=== PATIENT | male | born 1975 | race Two or more races ===

== ENCOUNTER 2025-02-06 17:01 | Emergency (ER) | payer OTHER, SELFPAY ==
[2025-02-06 17:02] VITALS: BMI 40.0
[2025-02-06 17:27] VITALS: BP 148/89; PULSE 91; RESP 17; TEMP 37; O2SAT 95; BMI 40.3
--- NOTE | 2025-02-06 17:32 | XR_ITS ---
Examination: Hand, left 3 views Technique: Hand AP, oblique, lateral 3 views Date and time of exam: February 06, 2025 1811 hours INDICATIONS: Onset pain today in the hand FINDINGS: No acute fracture No dislocation Mild osteoarthritis distal interphalangeal joints No aggressive arthritis No opaque foreign body IMPRESSION: No fracture No opaque foreign body
--- NOTE | 2025-02-06 18:34 | PD.EDHAND ---
Upper Extremity Injury RME/HPI General Chief Complaint: Hand/Wrist Problems Stated Complaint: INJURED MY HAND AT WORK LIFTING Time Seen by Provider: 02/06/25 17:11 Arrival date/time: 02/06/25 17:01 49M with no significant PMH presents to ED with L hand pain after he lifted something heavy today at work. Patient denies fall/trauma. Limitations: no limitations Related Data Allergies Allergy/AdvReac Type Severity Reaction Status Date / Time No Known Allergies Allergy Verified 02/06/25 17:05 Review of Systems Review of Systems Systems Reviewed: All systems reviewed, normal except as documented Constitutional Constitutional: Reports system reviewed and no additional complaints, except as documented, Denies fever(s) and Denies headache(s) ENT Ears, Nose, Mouth, and Throat: Denies disequilibrium and Denies headache(s) Cardiovascular Cardiovascular: Reports system reviewed and no additional complaints, except as documented, Denies chest pain and Denies dyspnea Respiratory Respiratory: Reports system reviewed and no additional complaints, except as documented, Denies cough and Denies dyspnea Gastrointestinal Gastrointestinal: Reports system reviewed and no additional complaints, except as documented, Denies abdominal pain, Denies nausea and Denies vomiting Musculoskeletal Musculoskeletal: Reports as per HPI and Reports arthralgias Neurologic Neurologic: Reports system reviewed and no additional complaints, except as documented, Denies confusion, Denies disequilibrium and Denies headache(s) Psychiatric Psychiatric: Denies confusion Past Medical History Social History SMOKING STATUS: Never smoker ED Exam General Limitations: Present no limitations General appearance: Present alert and in no apparent distress Head Head exam: Present atraumatic Eye Eye exam: Present normal appearance, PERRL and EOMI ENT ENT exam: Present normal exam, normal oropharynx and mucous membranes moist Neck Neck exam: Present normal inspection, full ROM and trachea midline Chest Chest inspection: Present normal inspection and symmetric chest wall rise Respiratory Respiratory exam: Present normal lung sounds bilaterally Cardiovascular Cardiovascular exam: Present regular rate, normal rhythm and normal heart sounds Abdominal Exam Abdominal exam: Present soft and normal bowel sounds Extremities Exam Extremities exam: Present normal inspection and full ROM Back Exam Back exam: Present normal inspection and full ROM Neurological Exam Neurological exam: Present alert, oriented X3 and CN II-XII intact Psychiatric Psychiatric exam: Present normal affect and normal mood Skin Skin exam: Present warm, dry, intact and normal color Course Quality Measures none Orders Category Date Time Status XR hand comp LT min 3V Stat Exams 02/06/25 17:32 Completed Vital Signs Vital signs: Vital Signs Temperature 98.6 F 02/06/25 17:27 Pulse Rate 91 02/06/25 17:27 Respiratory Rate 17 02/06/25 17:27 Blood Pressure 148/89 H 02/06/25 17:27 Pulse Oximetry (%) 95 02/06/25 17:27 Oxygen Delivery Method Room Air 02/06/25 17:27 O2 at 95% on RA and WNLs Extremity Injury MDM Narrative MDM Narrative:: 49M with no significant PMH presents to ED with L hand pain after he lifted something heavy today at work. Patient denies fall/trauma. Physical exam reveals no gross abnormality of L hand. ROM intact. Dynamometer Repairer normal. Patient is afebrile, calm, and alert. XR normal. Director Marketing Communications given. Patient data External records reviewed:: None Clinical information provided by:: patient Social determinants that could affect healthcare access:: none Patient has the following chronic illnesses:: none How is presenting disease/condition affected by chronic disease/condition?: no chronic disease Evaluation data The following diagnostics were reviewed and interpreted by me:: other (specify) (none) Lab and/or radiology exams considered but not ordered:: not ordered Interpretation Summary: n/a Medications / Prescriptions Medications or Prescriptions considered but not ordered:: not ordered Medication administrations:: n/a Consultations Consultation(s) initiated? (list below): No Diagnosis Upper Extremity Injury Differential Diagnosis: sprain and strain of wrist, fracture of wrist, finger sprain, dislocation of finger, Colles' fracture, fracture of hand and other (hand sprain) Most likely diagnosis given after review of the tests above:: hand sprain Admission Indicated Admission indicated?: not indicated Admission Request Was there a request for admission?: No Disposition Plan Disposition Plan: Discharge Discharge Attestation Discharge Attestation: The patient and all family members were given an opportunity to ask questions and understood the discharge instructions. Discharge instructions specifically effects, indications for sooner follow up or return to the emergency department, and the expected course of current diagnosis. Patient condition: Stable Discharge Plan Plan Patient Disposition: HOME (Self Care) Discharge Disposition comment: Stable Prescriptions/Referrals Referrals: No Primary/Family,Physician [Primary Care Provider] - In 1 week Problem List Clinical Impression: Hand sprain Patient/Caregiver Discharge Instructions Education Materials: ED Hand Sprain Additional Instructions: Please follow-up with PCP within 24-48 hours and return immediately if symptoms worsen. If problem persists, recommend outpatient PT and/or MRI follow-up. In the meantime, rest, use ice/heat, and/or compression. Print Language: Taiwanese Stand Alone Forms: Patient Portal Info Letter PA/BATTERY PARTS ASSEMBLER Supervising Physician PA/BATTERY PARTS ASSEMBLER Supervising Physician: Dr. Casanova
== END 2025-02-06 18:50 | disposition home or self-care (01) ==
PROVIDERS: Emergency Provider Emergency Medicine
DX: S63.92XA Sprain of unspecified part of left wrist and hand, initial encounter (principal); X50.9XXA Other and unspecified overexertion or strenuous movements or postures, initial encounter; Y93.89 Activity, other specified; Y92.512 Supermarket, store or market as the place of occurrence of the external cause; Y99.0 Civilian activity done for income or pay
CPT/HCPCS: 73130; 99283